=== PATIENT | male | born 1935 | race Caucasian/White ===

== ENCOUNTER 2022-04-05 14:08 | Inpatient (IN) | payer MEDICARE, OTHER ==
[~2022-04-05] VITALS: Ht 152.4 cm; Wt 69.9 kg
[2022-04-05] MEDS ORDERED: ACETAMINOPHEN ES 500 MG TABLET PO ONE (14:30)
[2022-04-05] MEDS ORDERED: ACETAMINOPHEN ES 500 MG TABLET ONE (14:30)
[2022-04-05] MEDS ORDERED: IV NORMAL SALINE 1000 ML BAG IV ONE (14:30)
[2022-04-05] MEDS ORDERED: ATOR20TA PO (14:40)
[2022-04-05] MEDS ORDERED: BISA10SU61 RC (14:40)
[2022-04-05] MEDS ORDERED: CA C1TAB71 PO (14:40)
[2022-04-05] MEDS ORDERED: BISA-79 PO (14:40)
[2022-04-05] MEDS ORDERED: MULT-1094 PO (14:40)
[2022-04-05] MEDS ORDERED: METO25TA6 PO (14:40)
[2022-04-05] MEDS ORDERED: ASCO500C18 PO (14:40)
[2022-04-05] MEDS ORDERED: ASPI81TA31 PO (14:40)
[2022-04-05] MEDS ORDERED: MAGN400O6 PO (14:40)
[2022-04-05] MEDS ORDERED: ACET-2154 PO (14:40)
[2022-04-05] MEDS ORDERED: HYDR453.3 TP (14:40)
[2022-04-05] MEDS ORDERED: PANT40TA49 PO (14:40)
[2022-04-05 14:47] LABS: HEMATOCRIT 37.5 % (36.7-47.1); MEAN CORPUSCULAR HEMOGLOBIN 31.4 uug (23.8-33.4); MEAN CORPUSCULAR VOLUME 92.4 fL (73.0-96.2); PLATELET COUNT (AUTO) 141 K/uL (152-348)
[2022-04-05 14:56] LABS: CARBON DIOXIDE 29 mmol/L (21-32); CHLORIDE 102 mmol/L (98-107); GLUCOSE 91 mg/dL (74-106); POTASSIUM 4.8 mmol/L (3.5-5.1); UREA NITROGEN, BLOOD 20 mg/dL (7-18)
--- NOTE | 2022-04-05 15:00 | NUR ---
Patient alert and oriented x2 accompanied by niece with complaints of general weakness and poor appetite for 2 days. Patient stays in assisting living per niece, vitals stable.
--- NOTE | 2022-04-05 15:01 | NUR ---
MD at bedside, medical screening exam in progress.
[2022-04-05 15:05] LABS: ALANINE AMINOTRANSFERASE 32 U/L (16-63); ALKALINE PHOSPHATASE 56 U/L (50-136); ASPARTATE AMINOTRANSFERASE 29 U/L (15-37); BILIRUBIN,DIRECT 0.2 mg/dL (0.0-0.2); BILIRUBIN,TOTAL 0.9 mg/dL (0.2-1.0); TOTAL PROTEIN, SERUM 7.7 g/dL (6.4-8.2)
[2022-04-05 15:37] LABS: *OCCULT BLOOD STOOL NEGATIVE (NEGATIVE)
--- NOTE | 2022-04-05 16:00 | NUR ---
Called ethan to get a bed in telemetry, said she will call back.
--- NOTE | 2022-04-05 16:34 | NUR ---
Still waiting for UA to be collected, pt stated he doesnt have the urge to urinate at the moment.
--- NOTE | 2022-04-05 18:15 | NUR ---
UA sent to lab.
[2022-04-05 18:19] LABS: *BILIRUBIN,URIN NEGATIVE (NEGATIVE); *CLARITY,URINE CLEAR (CLEAR); *COLOR,URINE YELLOW (YELLOW); *KETONES,URINE NEGATIVE (NEGATIVE); *UROBILINOGEN,URINE 0.2 E.U./dl (NORMAL); LEUKOCYTE ESTERASE ,URINE NEGATIVE (NEGATIVE); NITRITE, URINE NEGATIVE (NEGATIVE); UGLUCOSE NEGATIVE (NEGATIVE)
[2022-04-05 18:22] LABS: *BLOOD, URINE TRACE (NEGATIVE)
[2022-04-05] MEDS ORDERED: BISACODYL 5 MG TABLET.DR PO PRN (18:45)
[2022-04-05] MEDS ORDERED: MAGNESIUM HYDROXIDE 30 ML LIQUID UDC PO PRN (18:45)
--- NOTE | 2022-04-05 18:48 | NUR ---
Spoke with nurse ethan, report given. Patient will be in room 309 telemetry.
--- NOTE | 2022-04-05 19:00 | NUR ---
Report given to KATJA scott.
[2022-04-05] MEDS ORDERED: ONDANSETRON 4 MG/2 ML VIAL IV PRN (20:30)
[2022-04-05] MEDS ORDERED: ACETAMINOPHEN 325 MG TABLET PO PRN (20:30)
[2022-04-05] MEDS ORDERED: hydrALAZINE HCL 25 MG TABLET PO PRN (20:30)
[2022-04-05] MEDS ORDERED: TEMAZEPAM 7.5 MG CAPSULE PO PRN (20:30)
[2022-04-05] MEDS ORDERED: MORPHINE SULFATE 2 MG/1 ML DISP.SYRIN IV PRN (20:30)
--- NOTE | 2022-04-05 20:30 | NUR ---
Received patient via gurney. Admitted to room 309, Telemetry, with diagnosis of Generalized Weakness and Lower GI bleed under care of Dr. Rashid. Patient is awake, alert oriented X2, Malay speaking. Oriented patient to room, bed and call light button. 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 On room air, saturating 98%. Shows no signs of distress at this time. IV access on R AC gauge 20 patent and intact. Initial physical assessment done, wounds on buttock and chin noted, photos taken and attached to chart. Wound care consult placed. Obtained medical history from patient's niece and conservator, Nannette Palomino. Safety precautions initiated. Will continue to monitor.
[2022-04-05] MEDS: ATORVASTATIN 20 MG TABLET PO SCH (20:58)
[2022-04-05] MEDS: DOCUSATE SODIUM 100 MG CAPSULE PO SCH (20:58)
[2022-04-05] MEDS: METOPROLOL TARTRATE 25 MG TABLET PO SCH (20:58)
[2022-04-05 21:14] LABS: BACTERIA,URINE NONE SEEN /HPF (NONE SEEN); SQUAMOUS EPITHELIAL CELL,UR FEW /HPF (NONE SEEN); WBC,URINE 0-3 /HPF (0-3)
[2022-04-05 21:30] VITALS: BP_SYST 167; BP_SYST 170; BP_DIAS 67; BP_DIAS 75
--- NOTE | 2022-04-05 21:30 | NUR ---
Held scheduled dose of Metoprolol. HR was noted to be 54bpm. Gave PRN dose of Hydralazine. Addendum: 04/06/22 at 0540 by ISRA MARCANO RN Gave PRN dose of Hydralazine for blood pressure 170/75mmhg with HR of 54bpm.
[2022-04-05 22:00] VITALS: BP 147/67
[2022-04-06 00:30] VITALS: BP 141/66
[2022-04-06 04:00] VITALS: BP 144/74
[2022-04-06] MEDS: PANTOPRAZOLE SODIUM 40 MG TABLET.DR PO SCH (06:36)
--- NOTE | 2022-04-06 06:43 | NUR ---
Patient slept through the night with no complaints. No acute distress noted. Sinus rhythm on tele with HR of 72bpm with 1st degree and BBB. Safety precautions maintained. Will endorse to dayshift.
[2022-04-06 06:45] LABS: HEMATOCRIT 37.1 % (36.7-47.1); MEAN CORPUSCULAR HEMOGLOBIN 31.3 uug (23.8-33.4); MEAN CORPUSCULAR VOLUME 91.9 fL (73.0-96.2); PLATELET COUNT (AUTO) 126 K/uL (152-348)
[2022-04-06 07:16] LABS: THYROID STIMULATING HORMONE 2.627 mIU/mL (0.358-3.740)
[2022-04-06 07:36] LABS: BILIRUBIN,TOTAL 1.1 mg/dL (0.2-1.0); CREATININE 0.9 mg/dL (0.6-1.3); PHOSPHOROUS 3.5 mg/dL (2.5-4.9); POTASSIUM 4.2 mmol/L (3.5-5.1); TOTAL PROTEIN, SERUM 7.3 g/dL (6.4-8.2)
[2022-04-06] MEDS: MULTIVIT, IRON, MIN NO. 8, FA TABLET PO SCH (08:54)
[2022-04-06] MEDS: METOPROLOL TARTRATE 25 MG TABLET PO SCH (08:55)
--- NOTE | 2022-04-06 10:34 | NUR ---
PATIENT IS ALERT TO SELF AND AWARE WITH DISORIENTATION HE IS EASILY AROUSABLE ABLE TO MAKE SIMPLE NEEDS KNOWN PATIENT SEEN AND EXAMINED BY DR RENEE WITH NEW ORDERS AND NOTED.
[2022-04-06 11:45] VITALS: BP 97/72
[2022-04-06 15:58] VITALS: BP 144/71
--- NOTE | 2022-04-06 18:00 | NUR ---
RESTING IN BED QUIET DENIES DISCOMFORTS NOT IN DISTRESS AT THIS TIME.
--- NOTE | 2022-04-06 19:45 | NUR ---
Received patient in bed. AAOX2. Reoriented patient to date and time. Patient denies being distress at this time. On telemonitor, showing SR with 1st degree and BBB with HR of 80bpm. IV access patent and intact. Will continue to monitor.
[2022-04-06 20:26] VITALS: BP 126/73
[2022-04-06] MEDS: ATORVASTATIN 20 MG TABLET PO SCH (20:41)
[2022-04-06] MEDS: DOCUSATE SODIUM 100 MG CAPSULE PO SCH (20:41)
[2022-04-07 00:48] VITALS: BP 151/79
[2022-04-07 04:26] VITALS: BP 151/76
--- NOTE | 2022-04-07 05:57 | NUR ---
Patient slept intermittently through the night, with frequent visits to the rest room. Patient complained of pain in the sacral area, sacral wounds cleansed thoroughly with normal saline and covered with Z guard. Await wound care consult. 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 Safety precautions maintained. Will continue to monitor.
[2022-04-07] MEDS: PANTOPRAZOLE SODIUM 40 MG TABLET.DR PO SCH (06:06)
[2022-04-07] MEDS: MULTIVIT, IRON, MIN NO. 8, FA TABLET PO SCH (08:32)
--- NOTE | 2022-04-07 10:00 | NUR ---
PHYSICAL THERAPIST HERE TO SEE PATIENT FOR AMBULATION AND THERAPEUTIC EXERCISES BUT PATIENT REFUSED DESPITE EXPLAINATION AT THIS TIME PATIENTS RIGHT TO REFUSE RESPECTED.
[2022-04-07 12:06] VITALS: BP 146/80
--- NOTE | 2022-04-07 13:00 | NUR ---
DR CROWLEY HERE SEEN PATIENT WITH NO NEW ORDERS AT THIS TIME CALL LIGHTS AND PERSONAL BELONGINGS ARE WITHIN EASY REACH BED ALARM IS IN USE PATIENT TENDS TO FORGET TO ASK FOR ASSISTANCE AND IS AT RISKS FOR FALL.
[2022-04-07 16:02] VITALS: BP 154/96
--- NOTE | 2022-04-07 18:00 | NUR ---
RESTING REMAIN ALERT TO SELF WITH CONFUSSION BUT EASILY REDIRECTABLE ABLE TO MAKE SIMPLE NEEDS KNOWN NO C/O AT THIS TIME WILL CONTINUE TO OBSERVE.
[2022-04-07] MEDS ORDERED: REMEDY ESSENTIAL ZINC PASTE 113 GM TOP PRN (18:45)
--- NOTE | 2022-04-07 19:35 | NUR ---
Received patient in bed. AAOX2. No acute distress noted at this time. Safety precautions in place. Will continue to monitor.
[2022-04-07] MEDS: REMEDY ESSENTIAL ZINC PASTE 113 GM TOP SCH (20:06)
[2022-04-07] MEDS: ATORVASTATIN 20 MG TABLET PO SCH (20:06)
[2022-04-07] MEDS: DOCUSATE SODIUM 100 MG CAPSULE PO SCH (20:06)
[2022-04-07 20:08] VITALS: BP 123/74
[2022-04-08 04:33] VITALS: BP 134/86
[2022-04-08] MEDS: PANTOPRAZOLE SODIUM 40 MG TABLET.DR PO SCH (06:23)
[2022-04-08 06:36] LABS: HEMATOCRIT 43.6 % (36.7-47.1); MEAN CORPUSCULAR HEMOGLOBIN 31.5 uug (23.8-33.4); MEAN CORPUSCULAR VOLUME 92.3 fL (73.0-96.2); PLATELET COUNT (AUTO) 154 K/uL (152-348)
--- NOTE | 2022-04-08 06:44 | NUR ---
Patient slept through the night, with no complaints. No acute distress noted at this time. All needs attended to and met. Safety precautions maintained.
[2022-04-08 06:52] LABS: MAGNESIUM 1.9 mg/dL (1.8-2.4); PHOSPHOROUS 3.8 mg/dL (2.5-4.9); POTASSIUM 4.1 mmol/L (3.5-5.1)
--- NOTE | 2022-04-08 07:20 | NUR ---
IN BED AWAKE ALERT AND AWARE WITH DISORIENTATION ABLE TO MAKE SIMPLE NEEDS KNOWN ON ROOM AIR WITH NO SOB AT THIS TIME CALL LIGHTS AND PERSOANL BELONGINGS ARE WITHIN EASY REACH WILL CONTINUE TO OBSERVE.
[2022-04-08] MEDS: MULTIVIT, IRON, MIN NO. 8, FA TABLET PO SCH (08:42)
[2022-04-08] MEDS: REMEDY ESSENTIAL ZINC PASTE 113 GM TOP SCH (08:43)
--- NOTE | 2022-04-08 11:54 | NUR ---
WOUND CARE CONSULT: PT PRESENTS WITH PERIANAL/LOWER BUTTOCK TENDER AREA WITH DISCOLORATION AND SCARRING. AREA IS VERY TENDER PER PT REPORT. NO DRAINAGE NOTED. RECOMMEND SURGICAL CONSULT. DR MAYO NOTIFIED. IN AGREEMENT WITH PLAN OF CARE. PT IS ABLE TO ASSIST WITH TURNING AND REPOSITIONING. MD IN AGREEMENT WITH PLAN OF CARE.
[2022-04-08 13:01] VITALS: BP 108/71
[2022-04-08 15:48] VITALS: BP 107/61
--- NOTE | 2022-04-08 16:00 | NUR ---
PATIENT SEEN BY GAVIN COKER STATED THAT IT WAS OKAY FOR PATIENT TO BE DISCHARGED TO THE SNF WITH REMEDY PASTE CHAD AND NOTED PATIENTS NELLY BRADLEY PRESENT AND AWARE.
[2022-04-08] MEDS ORDERED: TEMA7.5C PO (16:04)
[2022-04-08] MEDS ORDERED: MENT113O TOP ×2 (16:04)
[2022-04-08] MEDS ORDERED: DOCU-141 PO (16:04)
[2022-04-08] MEDS ORDERED: ACET325T53 PO (16:04)
[2022-04-08] MEDS ORDERED: ATOR10TA PO (16:04)
[2022-04-08] MEDS ORDERED: BISA5TAB13 PO (16:04)
[2022-04-08] MEDS ORDERED: HYDR-894 PO (16:12)
--- NOTE | 2022-04-08 16:30 | NUR ---
CALLED THE [facility] AND REPORT GIVEN TO ALEX RN FOR CONTINUING CARE PATIENT WILL BE PICKED UP BY THE AMBULANCE AT ABOUT 1900 TODAY.
--- NOTE | 2022-04-08 18:00 | NUR ---
READY TO BE DISCHARGED AWAITING FOR THE AMBULANCE TO PICK HIM UP
--- NOTE | 2022-04-08 19:44 | NUR ---
Gave report to Albert Polk that pt is CPR but DNI based on doctors order when doctor talked with conservator.
--- NOTE | 2022-04-08 19:45 | NUR ---
Pt discharged via gurney. Gave discharge papers and report to Albetr Polk of [facility] unit [facility] [id number]. Pt in no acute distress. ID band taken off.Pt vital signs within normal limit. Pt stable.
[2022-04-08 20:12] VITALS: BP 116/69
[2022-04-08] MEDS ORDERED: ATORVASTATIN 10 MG TABLET PO SCH (21:00)
== END 2022-04-08 20:00 | DRG 394 ==
LOC: ER 14:08 → TELE3 20:14 → MEDSURG3 04-07 13:36
PROVIDERS: ADMIT Internal Medicine; ATTEND Internal Medicine
DX: K62.6 Ulcer of anus and rectum (principal); I45.3 Trifascicular block; D68.59 Other primary thrombophilia; R53.1 Weakness; E66.9 Obesity, unspecified; E78.5 Hyperlipidemia, unspecified; I10 Essential (primary) hypertension; K59.00 Constipation, unspecified; M19.90 Unspecified osteoarthritis, unspecified site; Z20.822 Contact with and (suspected) exposure to COVID-19; Z66 Do not resuscitate; Z79.82 Long term (current) use of aspirin; F03.90 Unspecified dementia, unspecified severity, without behavioral disturbance, psychotic disturbance, mood disturbance, and anxiety; K21.9 Gastro-esophageal reflux disease without esophagitis; R62.7 Adult failure to thrive; Z68.30 Body mass index [BMI] 30.0-30.9, adult; Z74.09 Other reduced mobility; K64.9 Unspecified hemorrhoids
CPT/HCPCS: 36415; 70450; 71045; 82378; 82652; 83550; 83605; 83735; 84100; 84443; 84484; 85025; 85730; 87040; 87086; 93005; 93307; 97161; A4663; A6213; A9150; G0378; J7040